=== PATIENT | male | born 1945 | race Caucasian/White ===

== ENCOUNTER 2019-12-06 22:02 | Emergency (ER) | payer OTHER, MEDICAID ==
[~2019-12-06] VITALS: Ht 175.3 cm; Wt 81.6 kg
[2019-12-06 22:10] VITALS: BP_SYST 190
--- NOTE | 2019-12-06 22:26 | NUR ---
Patient to ER bed 4 to gown for evaluation. Side rails up. Report given to Aleisha MARQUEZ.
--- NOTE | 2019-12-06 22:27 | NUR ---
ZAHRA Figueroa at bedside examining patient.
--- NOTE | 2019-12-06 22:27 | NUR ---
pt a&o x4 brought in by daughter from home after she noticed he had dried material in his nose. pt called daughter informing her that his O2 was burning his nose. pt reports having a bloody nose three days ago. pt lives at home alone and recently had a syncopal episode and had black and blue bruising on face as well as swelling. pt uses 3L of O2 at home. hx of emphysema.
--- NOTE | 2019-12-06 22:28 | NUR ---
Patient transported to radiology via gurney, accompanied by staff.
--- NOTE | 2019-12-06 22:48 | NUR ---
lab at bedside drawing blood.
--- NOTE | 2019-12-06 23:00 | NUR ---
dr. lawton at bedside cleaning out pts nose with a q tip moistened with 1mL of normal saline.
[2019-12-06 23:13] LABS: BASOPHILS # (AUTO) 0.1 K/uL (0.0-0.2); BASOPHILS % (AUTO) 1.4 % (0.0-2.0); EOSINOPHILS # (AUTO) 0.2 K/uL (0.0-0.4); EOSINOPHILS % (AUTO) 2.2 % (0.0-4.0); HEMATOCRIT 40.3 % (36-54); LYMPHOCYTES # (AUTO) 0.6 K/uL (1.0-5.5); LYMPHOCYTES % (AUTO) 7.5 % (20.5-51.5); MEAN CORPUSCULAR HEMOGLOBIN 27 pg (27-31); MEAN CORPUSCULAR HGB CONC 32 % (32-36); MEAN CORPUSCULAR VOLUME 84 fL (79.0-98.0); MONOCYTES # (AUTO) 0.6 K/uL (0.0-1.0); MONOCYTES % (AUTO) 7.4 % (1.7-9.3); NEUTROPHILS # (AUTO) 6.2 K/uL (1.8-7.7); NEUTROPHILS % (AUTO) 81.5 % (40.0-70.0); PLATELET COUNT (AUTO) 285 K/uL (130-430); RED BLOOD CELL COUNT(AUTO) 4.81 MIL/uL (4.2-6.2); RED CELL DISTRIBUTION WIDTH 15.4 % (9.0-15.0); WHITE BLOOD COUNT (AUTO) 7.6 K/uL (4.8-10.8)
[2019-12-06] MEDS ORDERED: BACITRACIN 1 GM OINT TP ONE (23:15)
[2019-12-06 23:25] LABS: ANION GAP 4 (5-15); CALCIUM 8.8 mg/dL (8.4-11.0); CHLORIDE 104 mmol/L (98-107); CREATININE 0.83 mg/dL (0.55-1.30); GLUCOSE 107 mg/dL (70-99); POTASSIUM 4.4 mmol/L (3.5-5.1); SODIUM SERUM 138 mmol/L (136-145); UREA NITROGEN, BLOOD 13 mg/dL (8-21)
[2019-12-06 23:31] LABS: ALANINE AMINOTRANSFERASE 22 U/L (12-78); ALBUMIN 3.1 g/dL (3.4-4.8); ASPARTATE AMINOTRANSFERASE 18 U/L (10-37); TOTAL BILIRUBIN 0.2 mg/dL (0.0-1.0)
[2019-12-06 23:43] VITALS: BP_SYST 115
--- NOTE | 2019-12-06 23:43 | NUR ---
Patient given written and verbal discharge instructions and verbalizes understanding. ER MD discussed with patient the results and treatment provided. Patient in stable condition. ID arm band removed. Rx of azithromycin given. Patient educated on pain management and to follow up with PMD. Pain Scale 0/10. Opportunity for questions provided and answered. Medication side effect fact sheet provided.
== END 2019-12-06 23:43 | disposition home or self-care (01) ==
LOC: SED 22:02
DX: J32.9 Chronic sinusitis, unspecified (principal); R55 Syncope and collapse; E78.00 Pure hypercholesterolemia, unspecified; J43.9 Emphysema, unspecified; F17.210 Nicotine dependence, cigarettes, uncomplicated
CPT/HCPCS: 36415; 70450-TC; 70486-TC; 80053; 85025; 93005; 99285